=== PATIENT | female | born 1940 | race Caucasian/White ===

== ENCOUNTER → 2017-08-24 | Day surgery (SDC) | payer MEDICARE ==
[~2017-08-24] VITALS: Ht 152.4 cm; Wt 62.0 kg
[~2017-08-24] MED LIST: 0.9% Sodium Chloride 1,000 ML IV SCH; ALBU8.5H4 IH; ASP81TEC PO; EPHEDrine/NS 5 mg/mL 5 mL Syringe ONE; Estradiol; HYDR25TA4 PO; LORA-303 PO; LOVA20TA7 PO; Lactated Ringer's 1,000 ML IV SCH; MIRA25TA PO; MIRT30TA PO; MetoCLOpramide 5 mg/mL 2 mL Inj IVPUSH PRN; NAPR220T2 PO; Ondansetron 2 mg/mL 2 mL Inj IVPUSH PRN; Propofol 10,000 mCg/mL 20 mL Inj ONE; RISE35TA PO; Sodium Chloride LOK Flush 10 mL Syringe IV PRN; fentaNYL-PF 50 mCg/mL 2 mL Inj IVPUSH PRN
[2017-08-24 14:22] VITALS: BP 153/69; PULSE 72; RESP 16; O2SAT 100
--- NOTE | 2017-08-24 14:39 | PCM.HPANE ---
Patient Data Date of Service: Aug 24, 2017 Surgeon Admitting Provider: Attending Provider:Juan F Helm MD Primary Care Physician:Juan F Brown MD Other Provider:Amisha Beauchamp Anesthesia Reason for Visit Non Intractable Vomiting W/Nausea Ht/WT & BMI Height (Feet): 5 Height (Inches): 0 Weight (Kilograms): 62 Body Mass Index 26.00 Allergies Coded Allergies: Povidone-Iodine (Verified Allergy, Severe, after last surgery rash, ) TAPE (Verified Allergy, Severe, rash/red use paper tape, 04/18/10) Past Anesthesia History Anesthesia History: Denies:: Abnormal Airway, Anesthesia Reactions, Difficult Intubation, Fam Anesthesia Reaction, Fam Malignant Hypertherm, Malignant Hyperthermia Diabetes History Hx Diabetes?: No MRSA MRSA: No Medications Home Meds Incl Beta Mando: No Reported Medications Hydrochlorothiazide 25 Mg Mysceh66 Mg PO DAILY 30 Days Ref 0 08/24/17 Mirabegron ER (Myrbetriq)25 Mg Lvfuqj32 Mg PO DAILY 08/24/17 Albuterol-Expunged Drug, Do Not Renew! 8.5 Gm Hfa.aer.ad2 Puffs IH PRN Take 2 puffs every 4-6 hours if needed 04/18/10 Lorazepam-Expunged Drug, Do Not Renew! 1 Mg Tab1 Mg PO AM Take morning of surgery for anxiety 04/18/10 [Estradiol] No Conflict Check 04/18/10 Lovastatin-Expunged Drug, Do Not Renew! (Mevacor-Expunged Drug, Do Not Renew!) 20 Mg Hyxqla45 Mg PO HS 04/18/10 Discontinued Reported Medications Naproxen Sodium-Expunged Drug, Do Not Renew! 220 Mg Ngymuy348 Mg PO PRN Take as directed 04/18/10 Risedronate-Expunged Drug, Do Not Renew! 35 Mg Wcgcmt33 Mg PO weekly 04/18/10 Mirtazapine-Expunged Drug, Do Not Renew! (Remeron-Expunged Drug, Do Not Renew!) 30 Mg Codmtv88 Mg PO HS 04/18/10 Aspirin-Expunged Drug, Do Not Renew! (Aspirin EC-Expunged Drug, Do Not Renew!) 81 Mg Patidd93 Mg PO DAILY 04/18/10 History History of ENT Problems?: No HEENT History: Denies:: Abnormal Airway Difficult Intubation Dysphagia Denture Type: None Teeth Condition: Within Normal Limits Hx of Heart Problems?: Yes Cardiovascular History: Positive for:: Hypertension Denies:: AICD Atrial Fibrillation Chest Pain Pacemaker Valvular Heart Disease Hx of Respiratory Problem?: Yes Respiratory History: Positive for:: Asthma Use of C-PAP Machine Denies:: COPD Cough Hemoptysis Pneumonia Tuberculosis Hx Neurologic Problems?: No Neurological History: Denies:: CVA Hx of GI Problems?: Yes (abdominal pain and diarrhea) Hx of Problems?: No Hx Musculoskeletal Problems?: Yes Musculoskeletal History: Positive for:: Joint Replacement Denies:: Fibromyalgia Hx of Psycho/Social Problems?: Yes Psycho Social History: Positive for:: Anxiety Hx Depression Hx Surgeries?: Yes (LEFT LUMPECTOMY, FEMUR REPAIR, RT KNEE, HYSTERCTOMY, APPY, BLADDER SUSPENSI) Hx Any Other Health Problems?: Yes Hx Diabetes: No Hx Alcohol Use: Yes (RECOVERING ALCOHOLIC, SOBER SINCE 1988)Hx Substance Use: NoHave You Smoked inLast 12 mo: No Stop/Bang Treated for Sleep Apnea?: Yes Do You Have a CPAP Machine?: Yes Risk Assessment Category Category 1A: Patient has history of documented sleep apnea, and HAS NOT received any narcotic, sedative or anesthesia administration during this stay. Category 1B: Patient has history of documented sleep apnea, and HAS received any narcotic , sedative or anesthesia administration during this stay Category 2: Patient has SUSPECTED Obstructive Sleep Apnea, and HAS received any narcotic , sedative or anesthesia administration during this stay. Category 3: Patient has SUSPECTED Obstructive Sleep Apnea and HAS NOT received narcotic, sedative or anesthesia administration during this stay. Category 4: Outpatient in Procedural Areas with known sleep apnea or who screen positive for High Risk via the STOP/BANG questionnaire. Exam Exam Vital Signs Vital Signs Date Time Temp Pulse Resp B/P Pulse Ox O2 Delivery O2 Flow Rate FiO2 08/24/17 14:22 36.4 72 16 153/69 100 Room Air General Appearance: Alert, Oriented X3, Cooperative HEENT/AIRWAY: MP 2, Neck Movement (Full), Mouth Opening (Wide) Lungs: Clear to Auscultation, Normal Air Movement Heart: Regular Rate/Rhythm, Normal S1, Normal S2 Plan Impression Patient chart reviewed, patient interviewed and anesthestic plan with risks, benefits, and alternatives discussed, and informed consent obtained. NPO per Anesth. Guidelines: Yes ASA Physical Status: ASA2 Mod Systemic Disease Anesthetic Plan: MAC Bene/Risks/Altern/Consents: Yes HP Complete Prior to Induction: Yes Jonah Montoya MD Aug 24, 2017 14:39
[2017-08-24] MEDS: Lactated Ringer's 1,000 ML IV ONE ×3 (14:47→15:29)
[2017-08-24 15:35] VITALS: BP 92/48; PULSE 67; RESP 16; O2SAT 98
[2017-08-24 15:46] VITALS: BP 114/57; PULSE 67; RESP 18; O2SAT 99
[2017-08-24 15:52] VITALS: BP 136/65; PULSE 66; RESP 16; O2SAT 97
[2017-08-24 15:56] VITALS: BP 138/67; PULSE 68; RESP 16; O2SAT 98
--- NOTE | 2017-08-24 15:59 | ENDO ---
[address] [address] ENDOSCOPY PROCEDURE PATIENT: DWIGHT DE JESUS : 1940 MR#: [id number] ADMIT: 08/24/2017 JOB ID: [id number] DATE OF SERVICE: 08/24/2017 TYPE OF OPERATION: Esophagogastroduodenoscopy with biopsy. Colonoscopy with biopsy. PREOPERATIVE DIAGNOSIS(ES): Nausea, vomiting, weight loss, diarrhea. POSTOPERATIVE DIAGNOSIS(ES): 1. Marked abnormal mucosa that was seen in the antrum with erythema, suspicious for malignancy, status post biopsy. 2. Diverticulosis seen in the sigmoid and ascending colon. 3. Erythematous and edematous mucosa in the colon that appears severely inflamed and cecum and very sparse throughout the colon, status post biopsy. ANESTHESIA: Monitored anesthesia care. COMPLICATIONS: None. BLOOD LOSS: Minimal. DESCRIPTION OF PROCEDURE: After risks and benefits explained to the patient, informed consent was obtained. After general anesthesia administered, an upper endoscope was inserted in mouth intubating to the esophagus, stomach, second portion of duodenum. Mucosa carefully examined. After procedure was done, the scope was withdrawn and the procedure terminated. Colonoscope was inserted from the rectum to the terminal ileum. Mucosa carefully examined. Prep of the patient was excellent. After the procedure was done, the scope withdrawn and procedure terminated. FINDINGS: Upon inspection of the esophagus, esophagus appeared normal without masses, ulcers, or lesions. Z-line located 35 cm from incisors. Upon inspection of the stomach, there appeared to be a markedly erythematous abnormal mucosa suspicious with friable mucosa suspicious for malignancy at the antrum which was biopsied. Retroflexion was normal. Duodenal bulb, first and second portion normal. No biopsies taken at duodenum. The body of stomach, abnormal mucosa in the antrum. Upon inspection of the anus, no masses, hemorrhoids, ulcers, fissures that were seen. Throughout the entire examination, the colon appeared to be slightly edematous with marked erythema that was seen in various parts of the colon especially in the cecum which was biopsied. The patient does have a history of C. diff. colitis in the past. There is also diverticulosis seen in ascending and sigmoid diverticulosis. Biopsies taken at terminal ileum and random colon. Retroflexion was not performed because the rectum appeared to be inflamed also too. IMPRESSION: 1. Abnormal mucosa seen in the stomach, in the antrum with friability suspicious for malignancy, status post biopsy. 2. Marked erythema with edematous mucosa that was seen at various parts of the colon especially in the cecum, status post biopsy. 3. Ascending colon to the sigmoid colon diverticulosis. RECOMMENDATIONS: 1. Await pathology results. 2. Follow up with Sharda Montana PA-C in GI Clinic in two weeks. 3. CT of chest, abdomen and pelvis with contrast to rule out metastases.
--- NOTE | 2017-08-24 20:47 | PCM.ANEP1 ---
Post Anesthesia PACU Phase 1 Assessment Date of Service: Aug 24, 2017 Vital Signs Vital Signs Date Time Temp Pulse Resp B/P Pulse Ox O2 Delivery O2 Flow Rate FiO2 08/24/17 15:56 68 16 138/67 98 Room Air 08/24/17 15:52 66 16 136/65 97 Room Air 08/24/17 15:46 67 18 114/57 99 Room Air 08/24/17 15:35 67 16 92/48 98 Nasal Cannula 4 08/24/17 14:22 36.4 72 16 153/69 100 Room Air Anesthetic Administered: MAC Level of Alertness: Sleepy, easy to arouse FARRELL's with Equal Strength: Yes Pain: No Nausea or Vomiting: No CV Function & Hydration Stable: Yes Airway Device: Oxygen Delivery: Nasal Cannula Lungs: Normal Air Movement PACU Phase 2 Assessment Complications: No Follow up Care: N/A Patient Instructions Provided: N/A Jonah Montoya MD Aug 24, 2017 20:47
--- NOTE | 2017-08-27 15:48 | PATH ---
SURGICAL PATHOLOGY Attending Physician:Juan F Helm MD CASE STATUS: Signed Out PATIENT NAME: DWIGHT DE JESUS PID: [id number] : 1940 DATE COLLECTED:08/24/2017 00:00 SPECIMEN: 1: Duodenum, Biopsy 2: Stomach, Antrum, Biopsy 3: Gastric, Biopsy 4: Ileum, Biopsy 5: Colon, Biopsy 6: Colon, Biopsy CLINICAL HISTORY: RULE OUT H PYLORI 1). DUODENUM BIOPSY 2). FRIABLE ANTRUM MUCOSA BIOPSY, RULE OUT MALIGNANT 3). GASTRIC BODY BIOPSY 4). TERMINAL ILEUM BIOPSY 5). RANDOM COLON BIOPSY 6). CECUM BIOPSY FINAL DIAGNOSIS: 1. Duodenum, Biopsy: Mildly active duodenitis. No definite blunting of villous architecture or intraepithelial lymphocytosis. Negative for dysplasia and malignancy. 2. Stomach, friable mucosa, biopsy: Antral mucosa with foveolar hyperplasia and stromal edema. See comment. No evidence of Helicobacter infection. Negative for intestinal metaplasia. Negative for dysplasia and malignancy. 3. Stomach, Body, Biopsy: Body type mucosa with a few dilated glands and mild stromal edema. See comment. No evidence of Helicobacter infection. Negative for intestinal metaplasia. Negative for dysplasia and malignancy. 4. Terminal Ileum, Biopsy: Chronic active ileitis with erosion. Negative for granulomas, dysplasia, and malignancy. 5. Random Colon, Biopsy: Colonic mucosa with no diagnostic abnormality. Negative for active, chronic, and microscopic colitis. Negative for dysplasia and malignancy. 6. Cecum, Biopsy: Mildly active colitis with mild stromal edema. See comment. Negative for granulomas, dysplasia, and malignancy. NOTE: There is mild active inflammation in the terminal ileum, cecum and duodenum. The differential diagnosis includes infection and medication related mucosal injury. Idiopathic inflammatory bowel disease is less likely, but can' t be entirely excluded. There is patchy stromal edema in the stomach and cecum biopsies, which may be processing artifact or resolved/resolving inflammation. The history of breast carcinoma is noted. No malignant cells are identified. GROSS DESCRIPTION: The specimen is received in six formalin filled containers labeled with the patient's name. 1). The specimen is labeled "duodenum" and consists of a 0.5 x 0.2 x 0.2 CM portion of tissue which is entirely submitted in cassette 1A. 2). The specimen is labeled "friable antrum" and consists of 2 portions of tissue which aggregate to 0.2 x 0.2 x 0.2 CM. The specimen is entirely submitted in cassette 2A. 3). The specimen is labeled "gastric body" and consists of 2 portions of tissue which aggregate to 0.2 x 0.2 x 0.2 CM. The specimen is entirely submitted in cassette 3A. 4). The specimen is labeled "terminal ileum" and consists of 2 portions of tissue which aggregate to 0.2 x 0.2 x 0.2 CM. The specimen is entirely submitted in cassette 4A. 5). The specimen is labeled "random colon" and consists of 4 portions of tissue which aggregate to 0.3 x 0.3 x 0.2 CM. The specimen is entirely submitted in cassette 5A. 6). The specimen is labeled "cecal" and consists of 4 portions of tissue which aggregate to 0.2 x 0.2 x 0.2 CM. The specimen is entirely submitted in cassette 6A. 08/25/2017IA ICD-9 CODES: CPT CODES: 1: 35872 2: 92294 3: 02401 4: 97218 5: 23166 6: 92445 Electronically Signed Out By Fani Boo MD [facility] [address], [place] [address] Technical component performed at [facility], [facility] [address], [place], [address]
== END | disposition home or self-care (01) ==
LOC: END 00:48
PROVIDERS: ATTEND Internal Medicine Gastroenterology
DX: K57.30 Diverticulosis of large intestine without perforation or abscess without bleeding (principal); K29.80 Duodenitis without bleeding; K52.89 Other specified noninfective gastroenteritis and colitis; R11.2 Nausea with vomiting, unspecified; R19.4 Change in bowel habit; R19.7 Diarrhea, unspecified; G47.33 Obstructive sleep apnea (adult) (pediatric); J45.909 Unspecified asthma, uncomplicated; Z85.3 Personal history of malignant neoplasm of breast; Z79.82 Long term (current) use of aspirin
CPT/HCPCS: 43239; 45380; J2704; J7120